=== PATIENT | male | born 1945 | race Caucasian/White ===

== ENCOUNTER 2020-03-03 | Outpatient (REF) | payer MEDICARE, OTHER, SELFPAY ==
[2020-03-03 11:33] LABS: INTERNATIONAL NORM RATIO 2.4 (0.9-1.1); Prothrombin Time 29.3 SEC (10.8-13.0)
== END 2020-03-03 00:01 | disposition home or self-care (01) ==
LOC: HO.HSHHMC
PROVIDERS: Visit Provider Nurse Practitioner
DX: I48.91 Unspecified atrial fibrillation (principal)
CPT/HCPCS: 36415; 85610

== ENCOUNTER 2020-03-17 | Outpatient (REF) | payer MEDICARE, OTHER, SELFPAY ==
[2020-03-17 09:20] LABS: INTERNATIONAL NORM RATIO 2.3 (0.9-1.1); Prothrombin Time 27.2 SEC (10.8-13.0)
== END 2020-03-17 00:01 | disposition home or self-care (01) ==
LOC: HO.HSHHMC
PROVIDERS: Visit Provider Nurse Practitioner
DX: I48.91 Unspecified atrial fibrillation (principal); Z79.01 Long term (current) use of anticoagulants
CPT/HCPCS: 36415; 85610

== ENCOUNTER 2020-04-01 07:40 | Outpatient (REF) | payer MEDICARE, OTHER, SELFPAY ==
[2020-04-01 09:35] LABS: INTERNATIONAL NORM RATIO 2.6 (0.9-1.1); Prothrombin Time 30.9 SEC (10.8-13.0)
[2020-04-01 10:16] LABS: Estimated Average Glucose 120 mg/dL; Hemoglobin A1c % 5.8 %
[2020-04-01 10:50] LABS: Prostate Specific Antigen Scr 12.29 ng/mL (<0.05-4.0); TSH reflex Free T4 0.15 mIU/mL (0.32-4.0)
[2020-04-01 11:31] LABS: Free T4 (Free Thyroxine) 1.15 ng/dL (0.71-1.85)
== END 2020-04-01 07:41 | disposition home or self-care (01) ==
LOC: HO.HSHHMC 07:40
PROVIDERS: Visit Provider Nurse Practitioner
DX: R73.9 Hyperglycemia, unspecified (principal); R97.20 Elevated prostate specific antigen [PSA]; E03.9 Hypothyroidism, unspecified
CPT/HCPCS: 36415; 83036; 84153; 84439; 84443; 85610

== ENCOUNTER 2020-04-15 10:30 | Outpatient (REF) | payer MEDICARE, OTHER, SELFPAY ==
[2020-04-15 10:27] LABS: INTERNATIONAL NORM RATIO 2.5 (0.9-1.1); Prothrombin Time 29.6 SEC (10.8-13.0)
== END 2020-04-15 10:31 | disposition home or self-care (01) ==
LOC: HO.HSHHMC 10:30
PROVIDERS: Visit Provider Nurse Practitioner
DX: I48.91 Unspecified atrial fibrillation (principal)
CPT/HCPCS: 36415; 85610

== ENCOUNTER 2020-04-29 | Outpatient (REF) | payer MEDICARE, OTHER, SELFPAY ==
[2020-04-29 11:44] LABS: INTERNATIONAL NORM RATIO 2.7 (0.9-1.1); Prothrombin Time 32.1 SEC (10.8-13.0)
== END 2020-04-29 00:01 | disposition home or self-care (01) ==
LOC: HO.HSHHMC
PROVIDERS: Visit Provider Nurse Practitioner
DX: I48.91 Unspecified atrial fibrillation (principal); Z79.01 Long term (current) use of anticoagulants
CPT/HCPCS: 36415; 85610

== ENCOUNTER 2020-05-13 10:28 | Outpatient (REF) | payer MEDICARE, OTHER, SELFPAY ==
[2020-05-13 09:29] LABS: INTERNATIONAL NORM RATIO 2.2 (0.9-1.1); Prothrombin Time 25.8 SEC (10.8-13.0)
== END 2020-05-13 10:29 | disposition home or self-care (01) ==
LOC: HO.HSHHMC 10:28
PROVIDERS: Visit Provider Nurse Practitioner
DX: I48.91 Unspecified atrial fibrillation (principal)
CPT/HCPCS: 36415; 85610

== ENCOUNTER 2020-05-26 09:16 | Outpatient (REF) | payer MEDICARE, OTHER, SELFPAY ==
[2020-05-26 09:17] LABS: INTERNATIONAL NORM RATIO 2.1 (0.9-1.1); Prothrombin Time 24.8 SEC (10.8-13.0)
== END 2020-05-26 09:17 | disposition home or self-care (01) ==
LOC: HO.HSHHMC 09:16
PROVIDERS: Visit Provider Nurse Practitioner
DX: I48.91 Unspecified atrial fibrillation (principal)
CPT/HCPCS: 36415; 85610

== ENCOUNTER 2020-06-09 05:40 | Outpatient (REF) | payer MEDICARE, OTHER, SELFPAY ==
[2020-06-09 09:42] LABS: INTERNATIONAL NORM RATIO 2.3 (0.9-1.1); Prothrombin Time 27.7 SEC (10.8-13.0)
== END 2020-06-09 05:41 | disposition home or self-care (01) ==
LOC: HO.HSHHMC 05:40
PROVIDERS: Visit Provider Nurse Practitioner
DX: I48.91 Unspecified atrial fibrillation (principal)
CPT/HCPCS: 36415; 85610

== ENCOUNTER 2020-06-23 07:00 | Outpatient (REF) | payer MEDICARE, OTHER, SELFPAY ==
[2020-06-23 09:40] LABS: INTERNATIONAL NORM RATIO 2.2 (0.9-1.1); Prothrombin Time 26.7 SEC (10.8-13.0)
== END 2020-06-23 07:01 | disposition home or self-care (01) ==
LOC: HO.HSHHMC 07:00
PROVIDERS: Visit Provider Nurse Practitioner
DX: I48.91 Unspecified atrial fibrillation (principal)
CPT/HCPCS: 36415; 85610

== ENCOUNTER 2020-07-14 07:23 | Outpatient (REF) | payer MEDICARE, OTHER, SELFPAY ==
[2020-07-14 09:05] LABS: INTERNATIONAL NORM RATIO 2.2 (0.9-1.1); Prothrombin Time 26.4 SEC (10.8-13.0)
== END 2020-07-14 07:24 | disposition home or self-care (01) ==
LOC: HO.HSHHMC 07:23
PROVIDERS: Visit Provider Nurse Practitioner
DX: I48.91 Unspecified atrial fibrillation (principal)
CPT/HCPCS: 36415; 85610

== ENCOUNTER 2020-08-11 05:31 | Outpatient (REF) | payer MEDICARE, OTHER, SELFPAY ==
[2020-08-11 09:07] LABS: INTERNATIONAL NORM RATIO 2.2 (0.9-1.1); Prothrombin Time 25.9 SEC (10.8-13.0)
== END 2020-08-11 05:32 | disposition home or self-care (01) ==
LOC: HO.HSHHMC 05:31
PROVIDERS: Visit Provider Nurse Practitioner
DX: I48.91 Unspecified atrial fibrillation (principal)
CPT/HCPCS: 36415; 85610

== ENCOUNTER 2020-09-08 11:21 | Outpatient (REF) | payer MEDICARE, OTHER, SELFPAY ==
[2020-09-08 11:07] LABS: Prothrombin Time 24.3 SEC (10.8-13.0)
== END 2020-09-08 11:22 | disposition home or self-care (01) ==
LOC: HO.HSHHMC 11:21
PROVIDERS: Visit Provider Nurse Practitioner
DX: I48.91 Unspecified atrial fibrillation (principal)
CPT/HCPCS: 36415; 85610

== ENCOUNTER 2020-09-15 10:53 | Outpatient (REF) | payer MEDICARE, OTHER, SELFPAY ==
[2020-09-15 11:20] LABS: INTERNATIONAL NORM RATIO 2.1 (0.9-1.1); Prothrombin Time 25.5 SEC (10.8-13.0)
== END 2020-09-15 10:54 | disposition home or self-care (01) ==
LOC: HO.LAB 10:53
PROVIDERS: Visit Provider Nurse Practitioner
DX: I48.91 Unspecified atrial fibrillation (principal)
CPT/HCPCS: 36415; 85610

== ENCOUNTER 2020-09-22 00:50 | Outpatient (REF) | payer MEDICARE, OTHER, SELFPAY ==
[2020-09-22 11:50] LABS: INTERNATIONAL NORM RATIO 2.1 (0.9-1.1); Prothrombin Time 25.1 SEC (10.8-13.0)
== END 2020-09-22 00:51 | disposition home or self-care (01) ==
LOC: HO.LHD 00:50
PROVIDERS: Visit Provider Nurse Practitioner
DX: I48.91 Unspecified atrial fibrillation (principal)
CPT/HCPCS: 36415; 85610

== ENCOUNTER 2020-10-06 00:53 | Outpatient (REF) | payer MEDICARE, OTHER, SELFPAY ==
[2020-10-06 11:40] LABS: INTERNATIONAL NORM RATIO 2.1 (0.9-1.1); Prothrombin Time 25.2 SEC (10.8-13.0)
== END 2020-10-06 00:54 | disposition home or self-care (01) ==
LOC: HO.LHD 00:53
PROVIDERS: Visit Provider Nurse Practitioner
DX: I48.91 Unspecified atrial fibrillation (principal)
CPT/HCPCS: 36415; 85610

== ENCOUNTER 2020-10-20 01:22 | Outpatient (REF) | payer MEDICARE, OTHER, SELFPAY ==
[2020-10-20 10:42] LABS: INTERNATIONAL NORM RATIO 2.3 (0.9-1.1); Prothrombin Time 27.7 SEC (10.8-13.0)
== END 2020-10-20 01:23 | disposition home or self-care (01) ==
LOC: HO.LHD 01:22
PROVIDERS: Visit Provider Nurse Practitioner
DX: E03.9 Hypothyroidism, unspecified (principal)
CPT/HCPCS: 36415; 85610

== ENCOUNTER 2020-11-10 | Outpatient (REF) | payer MEDICARE, OTHER, SELFPAY ==
[2020-11-10 12:11] LABS: INTERNATIONAL NORM RATIO 2.2 (0.9-1.1); Prothrombin Time 26.5 SEC (10.8-13.0)
== END 2020-11-10 00:01 | disposition home or self-care (01) ==
LOC: HO.HSHHMC
PROVIDERS: Visit Provider Nurse Practitioner
DX: I48.91 Unspecified atrial fibrillation (principal)
CPT/HCPCS: 36415; 85610

== ENCOUNTER 2020-12-01 | Outpatient (REF) | payer MEDICARE, OTHER, SELFPAY ==
[2020-12-01 11:23] LABS: INTERNATIONAL NORM RATIO 2.9 (0.9-1.1); Prothrombin Time 34.1 SEC (9.9-13.0)
[2020-12-01 12:03] LABS: Thyroid Stimulating Hormone 0.45 uIU/mL (0.32-4.0)
== END 2020-12-01 00:01 | disposition home or self-care (01) ==
LOC: HO.HSHHMC
PROVIDERS: Visit Provider Nurse Practitioner
DX: I48.91 Unspecified atrial fibrillation (principal); E03.9 Hypothyroidism, unspecified
CPT/HCPCS: 36415; 84443; 85610

== ENCOUNTER 2020-12-21 | Outpatient (REF) | payer MEDICARE, OTHER, SELFPAY ==
[2020-12-21 10:44] LABS: INTERNATIONAL NORM RATIO 2.5 (0.9-1.1); Prothrombin Time 29.5 SEC (9.9-13.0)
== END 2020-12-21 00:01 | disposition home or self-care (01) ==
LOC: HO.HSHHMC
PROVIDERS: Visit Provider Nurse Practitioner
DX: I48.91 Unspecified atrial fibrillation (principal); E05.00 Thyrotoxicosis with diffuse goiter without thyrotoxic crisis or storm
CPT/HCPCS: 36415; 85610

== ENCOUNTER 2021-01-11 05:00 | Outpatient (REF) | payer MEDICARE, OTHER, SELFPAY ==
[2021-01-11 11:25] LABS: INTERNATIONAL NORM RATIO 1.9 (0.9-1.1); Prothrombin Time 22.4 SEC (9.9-13.0)
[2021-01-11 12:16] LABS: Thyroid Stimulating Hormone 0.38 uIU/mL (0.32-4.0)
== END 2021-01-11 05:01 | disposition home or self-care (01) ==
LOC: HO.HSHHMC 05:00
PROVIDERS: Visit Provider Nurse Practitioner
DX: I48.91 Unspecified atrial fibrillation (principal)
CPT/HCPCS: 36415; 84443; 85610

== ENCOUNTER 2021-01-18 05:00 | Outpatient (REF) | payer MEDICARE, OTHER, SELFPAY ==
[2021-01-18 10:44] LABS: INTERNATIONAL NORM RATIO 2.2 (0.9-1.1); Prothrombin Time 25.1 SEC (9.9-13.0)
== END 2021-01-18 05:01 ==
LOC: HO.HSHHMC 05:00
PROVIDERS: Visit Provider Nurse Practitioner
DX: I48.91 Unspecified atrial fibrillation (principal)
CPT/HCPCS: 36415; 85610

== ENCOUNTER 2021-02-01 05:00 | Outpatient (REF) | payer MEDICARE, OTHER, SELFPAY ==
[2021-02-01 10:39] LABS: INTERNATIONAL NORM RATIO 2.1 (0.9-1.1); Prothrombin Time 23.7 SEC (9.9-13.0)
== END 2021-02-01 05:01 ==
LOC: HO.HSHHMC 05:00
PROVIDERS: Visit Provider Nurse Practitioner
DX: I48.91 Unspecified atrial fibrillation (principal)
CPT/HCPCS: 36415; 85610

== ENCOUNTER 2021-02-15 05:50 | Outpatient (REF) | payer MEDICARE, OTHER, SELFPAY ==
[2021-02-15 11:39] LABS: INTERNATIONAL NORM RATIO 2.1 (0.9-1.1); Prothrombin Time 24.6 SEC (9.9-13.0)
== END 2021-02-15 05:51 | disposition home or self-care (01) ==
LOC: HO.HSHHMC 05:50
PROVIDERS: Visit Provider Nurse Practitioner
DX: I48.91 Unspecified atrial fibrillation (principal)
CPT/HCPCS: 36415; 85610

== ENCOUNTER 2021-02-28 09:57 | Outpatient (REF) | payer MEDICARE, OTHER, SELFPAY ==
[2021-02-28 10:32] LABS: INTERNATIONAL NORM RATIO 2.5 (0.9-1.1); Prothrombin Time 29.2 SEC (9.9-13.0)
== END 2021-02-28 09:58 | disposition home or self-care (01) ==
LOC: HO.LHD 09:57
PROVIDERS: Visit Provider Nurse Practitioner
DX: I48.91 Unspecified atrial fibrillation (principal)
CPT/HCPCS: 36415; 85610

== ENCOUNTER 2021-03-21 07:56 | Outpatient (REF) | payer MEDICARE, OTHER, SELFPAY ==
[2021-03-21 10:24] LABS: INTERNATIONAL NORM RATIO 2.1 (0.9-1.1); Prothrombin Time 24.8 SEC (9.9-13.0)
[2021-03-21 11:27] LABS: Thyroid Stimulating Hormone 5.19 uIU/mL (0.32-4.0)
== END 2021-03-21 07:57 | disposition home or self-care (01) ==
LOC: HO.LHD 07:56
PROVIDERS: Visit Provider Nurse Practitioner
DX: I48.91 Unspecified atrial fibrillation (principal); E03.9 Hypothyroidism, unspecified
CPT/HCPCS: 36415; 84443; 85610